=== PATIENT | male | born 1990 | race African-American/Black ===

== ENCOUNTER 2018-10-20 07:50 | Emergency (ER) | payer OTHER ==
--- NOTE | 2018-10-20 08:15 | ED ---
General Adult HPI - General Chief complaint: Upper Respiratory Infection Stated complaint: Nausea,weakness Time Seen by Provider: 10/20/18 07:55 Source: patient Mode of arrival: ambulatory Limitations: no limitations - History of Present Illness Initial comments: Dictation was produced using [employer] dictation software. please excuse any grammatical, word or spelling errors. Chief Complaint: 28-year-old male presents with sore throat, cough and congestion. History of Present Illness: 28-year-old male witha past medical history. Presents with 2-3 days of sore throat, cough and congestion. Patient feels like he caught his symptoms from his son who is 4 years old who had similar symptoms. Patient is concerned because he feels like it is not safe for him to be at work. He is also requesting a work note. 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 Patient has any nausea. No fever, chills or night sweats. Patient otherwise has no other complaints. The ROS documented in this emergency department record has been reviewed and confirmed by me. Those systems with pertinent positive or negative responses have been documented in the HPI. All other systems are other negative and/or noncontributory. PHYSICAL EXAM: General Impression: Alert and oriented x3, not in acute distress HEENT: Normocephalic atraumatic, extra-ocular movements intact, pupils equal and reactive to light bilaterally, mucous membranes moist, it waxes in the right external auditory canal, mild erythema to the tonsillar pillars and posterior oropharynx without any exudates Cardiovascular: Heart regular rate and rhythm, S1&S2 audible, no murmurs, rubs or gallops Chest: Lungs clear to auscultation bilaterally, no rhonchi, no wheeze, no rales Abdomen: Bowel sounds present, abdomen soft, non-tender, non-distended, no organomegaly Musculoskeletal: Pulses present and equal in all extremities, no peripheral edema Motor: no focal deficits noted Neurological: CN II-XII grossly intact, no focal motor or sensory deficits noted Skin: Intact with no visualized rashes Psych: Normal affect and mood ED course: Patient is 28-year-old male presents with clinical presentation consistent with URI. Upon arrival are within acceptable limits.Rapid strep test negative, influenza test is negative. Discussed with patient that his symptoms are likely viral. Throat culture sent and will be available in 2 days. Patient told to follow-up with throat culture results. This point patient's well- appearing stable vital signs. Suctioning signs respiratory distress. No concerns for peritonsillar abscess. Patient clear for discharge. He requested a work note to be excused from work today. Work note provided. Patient given follow-up with her care physician for outpatient follow-up. Clinical presentation consistent with viral pharyngitis. He has no signs of emergent or life-threatening illness at this time. - Related Data Home Medications Medication Instructions Recorded Confirmed No Known Home Medications 10/20/18 10/20/18 Allergies Allergy/AdvReac Type Severity Reaction Status Date / Time No Known Allergies Allergy Verified 10/20/18 08:28 Review of Systems ROS Statement: Those systems with pertinent positive or pertinent negative responses have been documented in the HPI. ROS Other: All systems not noted in ROS Statement are negative. Past Medical History Past Medical History: No Reported History History of Any Multi-Drug Resistant Organisms: None Reported Past Surgical History: Orthopedic Surgery Additional Past Surgical History / Comment(s): lt elbow Past Psychological History: No Psychological Hx Reported Smoking Status: Never smoker Past Alcohol Use History: None Reported Past Drug Use History: Marijuana General Exam Limitations: no limitations Course Vital Signs 10/20/18 10/20/18 07:51 07:59 Temperature 99.3 F Pulse Rate 99 Respiratory 20 14 Rate Blood Pressure 113/81 O2 Sat by Pulse 99 Oximetry Medical Decision Making - Lab Data Lab Results 10/20/18 10/20/18 Range/Units 08:03 08:03 Influenza Type A RNA Not Detected (Not Detectd) Influenza Type B (PCR) Not Detected (Not Detectd) Group A Strep Rapid Negative (Negative) Disposition Clinical Impression: Pharyngitis Disposition: HOME SELF-CARE Condition: Good Instructions (If sedation given, give patient instructions): Upper Respiratory Infection (ED) Is patient prescribed a controlled substance at d/c from ED?: No Referrals: Robby Barnard MD [REFERRING] - 1-2 days Time of Disposition: 09:10
[2018-10-20] MEDS ORDERED: KETOROLAC 30 MG/ML 1 ML VIAL IM STA (08:20)
[2018-10-20 09:20] VITALS: BP 113/75; PULSE 61; RESP 13; TEMP 98.8
== END 2018-10-20 09:13 | disposition home or self-care (01) ==
LOC: EC 07:50
DX: J02.9 Acute pharyngitis, unspecified (principal)
CPT/HCPCS: 87070; 87081; 87430; 87502; 99283; 96372; J1885